=== PATIENT | female | born 1990 | race Caucasian/White ===

== ENCOUNTER 2016-07-19 06:12 | Inpatient (IN) | payer BC ==
[~2016-07-19] VITALS: Ht 175.3 cm; Wt 80.0 kg
[~2016-07-19 06:12] MED LIST: ASCO10007; CRAN300T; FOLI0.4T2 PO; PREN1TAB73 PO; ZINC30TA2
[2016-07-19] MEDS ORDERED: CALCIUM CARBONATE 500mg Chewable TAB PO PRN ×2 (06:30→15:00)
[2016-07-19] MEDS ORDERED: MAG-AL + SIM LIQUID 30 ML UDC PO PRN ×2 (06:30→15:00)
[2016-07-19] MEDS ORDERED: OXYTOCIN 30 UNIT in D5LR 500 ML PRN (06:30)
[2016-07-19] MEDS ORDERED: LIDOCAINE 1% (10mg/ml) 2ml SDV ID PRN (06:30)
[2016-07-19] MEDS ORDERED: ACETAMINOPHEN 500 MG TABLET PO PRN ×2 (06:30→15:00)
[2016-07-19] MEDS: LR 1,000 ML IV PRN ×2 (06:47→11:09)
[2016-07-19 06:51] LABS: HCT - HEMATOCRIT 40.2 % (36-46); HGB - HEMOGLOBIN 13.7 GM/DL (12-16); MEAN CORPUSCULAR HGB 30.6 UUG (26-34); MEAN CORPUSCULAR HGB CONC(MCHC 34.1 GM/DL (31-37); MEAN CORPUSCULAR VOLUME 89.9 UM3 (80-100); MEAN PLATELET VOLUME 9.1 UM3 (9.4-12.4); RED BLOOD COUNT 4.47 M/MM3 (4.00-5.20); WBC - WHITE BLOOD COUNT 11.8 T/MM3 (4.5-11.0)
[2016-07-19] MEDS ORDERED: D5LR 1,000 ML IV PRN (07:00)
[2016-07-19 07:15] VITALS: BP 128/71; PULSE 81; RESP 16; TEMP 98; O2SAT 97
--- NOTE | 2016-07-19 09:10 | ANESOB ---
Epidural/ Date/Time DATE: 07/19/16 TIME: 09:09 Preop Diagnosis Procedure: Labor Epidural Plan: Epidural Height: 5 ' 9.00 " Weight: 80.000 kg BMI: kg/m2 P:0 Medications & Allergies Inpatient Medications Current Medications Medications (Trade) Dose Ordered Sig/Tio Start Time Stop Time Status Last Admin Dose Admin Lidocaine HCl 0.2 mg 0.2 mg PRN PRN 07/19/16 06:30 Lactated Ringer's (Lactated Ringers) 1,000 ml @ 0 mls/hr Q0M PRN 07/19/16 06:18 07/19/16 06:47 0 MLS/HR Acetaminophen (Tylenol Extra Strength) 1-2 TABS = 500-1,000 MG Q4H PRN 07/19/16 06:30 Al Hydroxide/Mg Hydroxide (Maalox) 30 ml Q4H PRN 07/19/16 06:30 Calcium Carbonate 1-2 TABS Q2H PRN 07/19/16 06:30 Dextrose/Lactated Ringer's 1,000 ml @ 0 mls/hr Q0M PRN 07/19/16 07:00 07/19/16 07:04 0 MLS/HR Oxytocin/Dextrose/ Lactated Ringer's (Pitocin/D5lr) 503 ml @ 0 mls/hr Q0M PRN 07/19/16 06:30 07/19/16 07:04 0 MLS/HR Ascorbic Acid (Vitamin C) 1,000 Mg Tablet, (Reported) Last Taken: on 07/18/161999 Cranberry Extract (Cranberry) 300 Mg Tablet, ( Reported) Last Taken: on 07/18/161999 Folic Acid (Folic Acid) 0.4 Mg Tablet, PO DAILY, (Reported) Last Taken: on 07/18/161999 Pnv95/Ferrous Fumarate/FA ( Tablet) 1 Each Tablet, 1 TAB PO DAILY, (Reported) Last Taken: on 07/18/161999 Zinc Gluconate (Zinc) 30 Mg Tablet, (Reported) Last Taken: on 07/18/161999 Coded Allergies: NKDA (Verified Allergy, Unknown, 07/19/16) Medical/Surgical History Anesthesia PMH: Denies: Anesthesia Reactions, Malignant Hyperthermia Smoking Status: Never smoker Does patient use chewing tobac: No Second Hand Exposure: No Substance Use Type: does not use Alcohol Intake: none Anesthesia Adverse Reactions: FOUND none Family Hx of Anesthesia Advers: none Hx of Motion Sickness: No Complications During : No Pertinent Findings Laboratory Tests 07/19/16 06:43 Physical Exam Respiratory: Bilat breath sounds equal, Lungs clear Cardiovascular: No murmur, Regular rate, rhythm Airway Assessment Mallampati Score: I TMD: 3 Fingerbreadths Neck Extension: Good Overall Assessment: No Airway Concerns ASA: 2 Discussion Discussed risks/options/alternatives of anesthesia. Patient consents. Nursing pain assessment noted. Present for Discussion: Present: Spouse Attestation Statement Prior to the delivery of any anesthetic medication, I examined the patient, developed the plan, obtained the patient's consent and discussed the risk and benefits of the procedure with the patient/guardian. If the note happens to be signed after anesthesia start time, it is only due to providing efficient care of the patient and documenting at a time when the computer is available. HAN DE LA VEGA CRNA Jul 19, 2016 09:10
[2016-07-19] MEDS ORDERED: ONDANSETRON 4mg/2ml INJECTION IV PRN (12:15)
[2016-07-19] MEDS ORDERED: ROPIVACAINE 1% 200 MG, SUFENTANIL 50 MCG in NORMAL SALINE 80 ML EPI PRN (12:15)
[2016-07-19] MEDS ORDERED: NALOXONE 0.4mg/ml INJECTION IV PRN (12:15)
[2016-07-19] MEDS ORDERED: DiphenhydrAMINE 50 MG/ML INJECTION IV PRN (12:15)
[2016-07-19] MEDS ORDERED: OXYTOCIN 30 UNIT in D5W 500 ML IV ONE (14:55)
[2016-07-19] MEDS ORDERED: HYDROCORTISONE 2.5% CREAM 30 GM RECTALLY PRN (15:00)
[2016-07-19] MEDS ORDERED: PHENYLEPHRINE RECTAL SUPPOSITORY RECTALLY PRN (15:00)
[2016-07-19] MEDS ORDERED: MILK OF MAGNESIA 30 ML SUSP PO PRN (15:00)
[2016-07-19] MEDS ORDERED: HYDROCODONE/APAP 5 mg/325 mg TABLET PO PRN (15:00)
[2016-07-19] MEDS: IBUPROFEN 800 MG TABLET PO SCH ×2 (15:22→23:20)
--- NOTE | 2016-07-19 17:11 | NUR ---
Epidural Epidural catheter removed without complications, tip intact, no S/S of infection noted. Area cleansed with alcohol, betadine and covered with a bandaid. Pt. educated about S/S of infection and to call doctor with concerns.
[2016-07-19 17:55] VITALS: BP 127/69; PULSE 90; RESP 16
[2016-07-19 18:45] VITALS: BP 110/69; PULSE 60; RESP 14; TEMP 97.8
--- NOTE | 2016-07-19 18:52 | LDNF ---
DATE OF DELIVERY 07/19/2016 NARRATIVE Ms. Del Real progressed very well in first stage of labor. At the complete and +2 position she began to push with excellent effort. heart tones developed some deep variables but kept returning to baseline. After pushing less than an hour she delivered the head in the OA presentation. There was a tight nuchal cord x 1. I doubly clamped it and cut it. Then, with a further push baby delivered in total. The right hand was up by shoulder. The baby was then placed on mother's abdomen and bulb suctioned. This is a liveborn female with Apgars of 8/8/8. She weighed 8 pounds 5.4 ounces. The placenta subsequently delivered spontaneously intact. It had a normal configuration and normal-appearing three-vessel cord. Total blood loss was approximately 300 mL. At the time of dictation mother and baby are doing well. [facility]
[2016-07-19 22:40] VITALS: BP 136/76; PULSE 65; RESP 16; TEMP 97.9
[2016-07-19] MEDS: DiphenhydrAMINE 25 MG CAPSULE PO PRN (22:43)
--- NOTE | 2016-07-19 23:37 | NUR ---
Chart Check 24 hour chart check completed
--- NOTE | 2016-07-20 02:07 | NUR ---
SHIFT SUMMARY: VSS, pt's pain controlled with PO Motrin. Fundus firm at 1 above umbilicus, light lochia noted. IV SL in pt's right forearm. Epidural cath dc'd, no complications. RN assisted pt to BRP during recovery, pt denies dizziness or lightheadedness. RN discusses and provides pericare x2. Pt now up ad meenu, voiding, performing own personal cares and consuming general diet. is uncoordinated, RN assist with positioning and latch. Pt bonding with baby appropriately. Shane in room and supportive. Multiple family and guests to visit with family this shift.
[2016-07-20 06:30] VITALS: BP 117/64; PULSE 68; RESP 16; TEMP 98.6
[2016-07-20] MEDS: IBUPROFEN 800 MG TABLET PO SCH ×3 (08:15→23:51)
--- NOTE | 2016-07-20 08:19 | PNPDOC ---
Prog Note 07/20/16 vss af no c/o this am doing well continue routine care path [id number] OLIVER LARSEN MD Jul 20, 2016 08:19
--- NOTE | 2016-07-20 08:23 | ANESPO ---
Post-Op Note Date 07/20/16 Time: 08:15 Status Pt Participated in Evaluation: Pt participated in person Vital Signs Date Time Temp Pulse Resp B/P Pulse Ox O2 Delivery O2 Flow Rate FiO2 07/20/16 06:30 98.6 68 16 117/64 Room Air 07/19/16 07:15 97 Respiratory Function: Airway patent, Regular respirations Cardiovascular Function: Regular pulse Mental Status: Alert/oriented Pain Level Intensity: 0 Unable to Assess Pain Due To: Pt Sleeping Hydration: Taking po fluids Complications during Recovery None apparent Post-Anesthesia Notes ambulatory without problem Follow-Up Instructions Instructions Per Surgeon RADHA KHOURY CRNA Jul 20, 2016 08:22
--- NOTE | 2016-07-20 08:50 | NUR ---
CM CM IN TO VISIT PATIENT, SHE IS HOLDING BABY AND IS AT THE BEDSIDE. PATIENT AND STATE THAT THEY HAVE EVERYTHING THEY NEED FOR BABY AT HOME AND HAVE A GOOD SUPPORT SYSTEM. PATIENT'S ONLY CONCERN WAS HOW BABY WAS BUT STAFF IS WORKING WITH HER. CM CONTACT INFORMATION GIVEN.
[2016-07-20] MEDS: DOCUSATE CALCIUM 240 MG CAPSULE PO SCH (09:05)
--- NOTE | 2016-07-20 15:14 | NUR ---
SHIFT SUMMARY VSS. FUNDUS FIRM AT UMBILICUS, LOCHIA IS SCANT. PAIN CONTROLLED WITH SCHEDULED IBUPROFEN 800MG. IV D/C'D. ATTEMPTING TO BREASTFEED BABY, DOES NOT LATCH WELL. PUMPING AFTER EVERY OTHER FEED AND SUPPLEMENTING 10-15MLS OF EXPRESSED MILK. PROVIDED ALL SELF CARES.
[2016-07-20 16:45] VITALS: BP 112/68; PULSE 68; RESP 18; TEMP 97.8
[2016-07-20 21:50] VITALS: BP 117/68; PULSE 80; RESP 16; TEMP 97.5
[2016-07-20] MEDS: DiphenhydrAMINE 25 MG CAPSULE PO PRN (23:51)
--- NOTE | 2016-07-21 01:43 | NUR ---
Chart Check 24 hour chart check completed
--- NOTE | 2016-07-21 02:35 | NUR ---
SHIFT SUMMARY: VSS, pt's pain controlled with PO Motrin. Fundus firm at umbilicus, light lochia. Pt up ad meenu, voiding, performing own personal cares, showered this shift and tolerating general diet. Pt pumping and providing colostrum. PT attempted to a few times w/o success. RN discusses feeding plan with pt multiple times. Pt napped at beginning of shift while baby was in the nursery. and family this evening and supportive. Pt bonding with baby appropriately.
[2016-07-21 06:30] VITALS: BP 109/67; PULSE 68; RESP 16; TEMP 98.1; O2SAT 98
[2016-07-21] MEDS ORDERED: HYDR-4246 PO (07:24)
[2016-07-21] MEDS ORDERED: DOCU240C40 PO (07:24)
[2016-07-21] MEDS ORDERED: IBUP-1547 PO (07:24)
[2016-07-21] MEDS: IBUPROFEN 800 MG TABLET PO SCH (09:38)
[2016-07-21] MEDS: DOCUSATE CALCIUM 240 MG CAPSULE PO SCH (09:39)
[2016-07-21 11:05] VITALS: BP 112/65; PULSE 80; RESP 16; TEMP 98; O2SAT 98
== END 2016-07-21 14:30 | disposition home or self-care (01) | DRG 775 ==
LOC: MC 06:12
PROVIDERS: ADMIT Obstetrics & Gynecology; ATTEND Obstetrics & Gynecology
PROC: 10E0XZZ Delivery of Products of Conception, External Approach (ICD-10-PCS; principal; 2016-07-19)
PROC: 0UQMXZZ Repair Vulva, External Approach (ICD-10-PCS; 2016-07-19)
PROC: 3E033VJ Introduction of Other Hormone into Peripheral Vein, Percutaneous Approach (ICD-10-PCS; 2016-07-19)
PROC: 10907ZC Drainage of Amniotic Fluid, Therapeutic from Products of Conception, Via Natural or Artificial Opening (ICD-10-PCS; 2016-07-19)
DX: O26.893 Other specified pregnancy related conditions, third trimester (principal); O76 Abnormality in fetal heart rate and rhythm complicating labor and delivery; O69.1XX0 Labor and delivery complicated by cord around neck, with compression, not applicable or unspecified; O32.8XX0 Maternal care for other malpresentation of fetus, not applicable or unspecified; O70.0 First degree perineal laceration during delivery; O26.23 Pregnancy care for patient with recurrent pregnancy loss, third trimester; Z3A.39 39 weeks gestation of pregnancy; Z37.0 Single live birth
CPT/HCPCS: 85027; 86850; 86900; 86901